=== PATIENT | female | born 1975 | race Caucasian/White ===

== ENCOUNTER 2019-01-23 20:11 | Emergency (ER) | payer MEDICAID ==
[2019-01-24] MEDS: DEXAMETHASONE 10 MG/ML 1 ML INJ IM (00:57)
[2019-01-24] MEDS: DIPHENHYDRAMINE 25 MG CAP PO (01:47)
== END 2019-01-24 01:49 | disposition home or self-care (01) ==
LOC: FTE 20:11
DX: L50.9 Urticaria, unspecified (principal); J45.909 Unspecified asthma, uncomplicated
CPT/HCPCS: 96372; 99284-25